=== PATIENT | female | born 1985 | race American Indian/Alaskan Native ===

== ENCOUNTER 2020-08-22 10:17 | Day surgery (SDC) | payer BC, OTHER ==
[2020-08-22] MEDS ORDERED: SODIUM CHLORIDE 0.9% 1000 ML 1,000 ML ONE (10:41)
[2020-08-22] MEDS ORDERED: SODIUM CHLORIDE 0.9% 1000 ML 1,000 ML IV SCH (11:00)
[2020-08-22] MEDS ORDERED: propofoL 200 MG/20 ML VIAL IV ONE ×2 (11:04→11:48)
--- NOTE | 2020-08-22 11:19 | Anesthesia Day of Surgery ---
Anesthesia Day of Surgery - Day of Surgery Patient Examined: Yes Patient H&P Reviewed: Yes Patient is NPO: Yes
--- NOTE | 2020-08-22 11:19 | Anesthesia Consultation ---
Anesthesia Consult and Med Hx Date of service: 08/22/20 - Airway Anesthetic Teeth Evaluation: Good, Chipped (#9) ROM Head & Neck: Adequate Mental/Hyoid Distance: Adequate Mallampati Class: Class II Intubation Access Assessment: Probably Good - Pre-Operative Health Status ASA Pre-Surgery Classification: ASA2 Proposed Anesthetic Plan: MAC - Pulmonary Hx Smoking: Yes (marijuana daily) - Central Nervous System Hx Seizures: Yes (last 07/2020) - Gastrointestinal Hx Gastroesophageal Reflux Disease: Yes - Other Systems Hx Substance Use: Yes (marijuana daily)
--- NOTE | 2020-08-22 12:29 | Procedure Note ---
Date of procedure: 08/22/20 Pre-op diagnosis: GERD/ ABdominal Pain/F/H/O Colon Cancer (mother) Post-op diagnosis: other (Mild to Moderate, Erosive Esophagitis/ Gastritis/ R/O Celiac disease/R/O Microscopic colitis/ R/O Ileitis) Procedure: EGD with Biopsy and Colonoscopy with Biopsy [place] [facility] [place]: LILLIAN SPRING Estimated blood loss: minimal Pathology: list Specimen disposition: to lab Condition: stable Disposition: same day (Treat with PPI,Baclofen and prn Bentyl and OTC Probiotic. Avoid aspirin and NSAID for 4 days; otherwise resume home medication and follow up in 1 to 2 weeks ([phone]).)
--- NOTE | 2020-08-22 12:38 | Operative Report ---
PROCEDURE: Colonoscopy. INDICATIONS: This is a 34-year-old -Stateless female who has an underlying history of seizure disorder. Strong family history of colon cancer, the patient's mother had colon cancer in her 40s. EGD was done prior to this, because of GERD symptoms. EGD showed presence of [id number] erosive esophagitis, gastritis. Biopsy was also done to rule out for celiac disease and eosinophilic esophagitis. No significant hiatal hernia was noted. DESCRIPTION OF PROCEDURE: Colonoscopy was done after getting informed consent with MAC anesthesia. Initial rectal exam was unremarkable. Instrument was passed through the rectum onto the cecum, which was identified with ileocecal valve and the appendiceal orifice. Visualization was fair. Mucosa was washed with copious amounts of water. The terminal ileum was intubated, showed normal mucosa. Biopsy was done to rule out for possible ileitis. Cecum, ascending colon, transverse colon, descending colon, and sigmoid likewise showed normal mucosa. There was no endoscopic evidence of colitis, polyps or diverticular disease. Random biopsies were done to rule out for possible microscopic colitis and the rectum did not show any internal hemorrhoid on the retroverted view. There was minimal bleeding associated with the procedure. No complications associated with the procedure. ASSESSMENT: Abdominal pain, family history of colon cancer. No colon polyps noted. No diverticular disease noted. Biopsy done to rule out for possible ileitis and microscopic colitis with minimal bleeding. The patient will be asked to avoid aspirin and aspirin-related products for the next few days. Otherwise, resume home medication, will be treated with PPI because of the EGD findings of esophagitis and gastritis. Bentyl for abdominal pain to be used on a p.r.n. basis and probiotics as well as baclofen to help with GERD symptoms. The patient will be asked to follow up in the office in 1-2 weeks' time. The procedure was done in the GI lab with assistance of the GI lab team, which included Karon Capps; Sid chatterjee and with assistance of anesthesia. JOB# [id number] ADITI/SABINO
--- NOTE | 2020-08-22 13:38 | Post Anesthesia Evaluation ---
- Post Anesthesia Evaluation Patient Participated: Yes Airway Patent: Yes Stable Respiratory Function: Yes Nausea/Vomiting: No Temp > 96.8F: Yes Pain Manageable: Yes Adequeate Hydration: Yes Anesthesia Complications: No Block Receding Appropriately: Not Applicable Patient on Ventilator: No
[2020-08-22 14:39] VITALS: BP 131/79
--- NOTE | 2020-08-22 17:20 | Operative Report ---
PROCEDURE: Esophagogastroduodenoscopy with biopsy. INDICATIONS: This is a 34-year-old -Cyp[place] female with an underlying history of seizure disorder, strong family history of cancer and the patient's mother had colon cancer at a relatively young age. She was told previously that she has a hiatal hernia. She has been having GERD symptoms. EGD was done to assess for the severity of the GERD symptoms and also for the abdominal pain. DESCRIPTION OF PROCEDURE: The procedure was done after getting informed consent with MAC anesthesia. Instrument was passed through the hypopharynx into the esophagus, which showed [id number] erosive esophagitis. Biopsy was done from the distal esophagus as well as the mid esophagus to assess also for eosinophilic esophagitis. The stomach showed antral gastritis. Biopsy was done from the gastric antrum, gastric body and angular incisura to rule out for H. pylori and atrophic gastritis. There did not appear to be any significant hiatal hernia on the retroverted view. The pylorus was patent. The duodenum in the first and second portion appeared normal. Biopsy was done from the second part to rule out for possible celiac disease. ASSESSMENT: Gastroesophageal reflux disease symptoms, mild to moderate erosive esophagitis, rule out eosinophilic esophagitis, gastritis, rule out celiac disease. There was minimal bleeding associated with the procedure. No complications associated with the procedure. PLAN: Treat the patient with PPI, baclofen to minimize acid reflux to be taken at bedtime and Bentyl for abdominal pain. The patient will also be encouraged to take probiotics. Avoid aspirin and aspirin-related products for the next 5 days. Otherwise, resume home medication. A colonoscopy will also be done for further assessment and the patient will be asked to follow up in the office in 1-2 weeks' time. Procedure was done in the GI Lab with assistance of the GI Lab team, which included RN, Karon Capps; Sid chatterjee and with assistance of Anesthesia. JOB# [id number] ADITI/SABINO
== END 2020-08-22 10:18 | disposition home or self-care (01) ==
LOC: GIO 10:17
DX: R10.9 Unspecified abdominal pain (principal); K64.8 Other hemorrhoids; K21.00 Gastro-esophageal reflux disease with esophagitis, without bleeding; K29.70 Gastritis, unspecified, without bleeding; F32.9 Major depressive disorder, single episode, unspecified; K31.89 Other diseases of stomach and duodenum; K63.89 Other specified diseases of intestine; Z79.899 Other long term (current) drug therapy; Z80.0 Family history of malignant neoplasm of digestive organs
CPT/HCPCS: 43239; 45380; 88305; 88342; J2704; J7030